=== PATIENT | female | born 1995 | race Caucasian/White ===

== ENCOUNTER → 2025-01-26 07:48 | Outpatient (REF) | payer OTHER, SELFPAY | LOC: RAD 07:48 | PROVIDERS: ATTENDING PHYSICIAN Internal Medicine; FAMILY PHYSICIAN Family Medicine | DX: R10.13 Epigastric pain (principal); K58.2 Mixed irritable bowel syndrome | CPT/HCPCS: 78264; A9541 ==

== ENCOUNTER 2025-03-09 06:23 | Day surgery (SDC) | payer OTHER, SELFPAY | END 2025-03-09 14:00 | disposition home or self-care (01) | LOC: GI 06:23 | PROVIDERS: ATTENDING PHYSICIAN Internal Medicine | DX: R12 Heartburn (principal); R14.0 Abdominal distension (gaseous); K44.9 Diaphragmatic hernia without obstruction or gangrene; K31.89 Other diseases of stomach and duodenum; K22.89 Other specified disease of esophagus; K20.0 Eosinophilic esophagitis | CPT/HCPCS: 43239; 88305; 88342 ==

== ENCOUNTER 2025-05-12 08:56 | Emergency (ER) | payer OTHER, SELFPAY ==
[2025-05-12 09:09] VITALS: BP 123/79
[2025-05-12 09:19] VITALS: BMI 31.6
--- NOTE | 2025-05-12 09:41 | ED.GENMED ---
History of Present Illness
General
Chief Complaint: Abdominal Pain
Source: patient
Exam Limitations: none
Time Seen by Provider: 05/12/25 09:17
Nursing documentation reviewed up to this point in time: agreed with
History of Present Illness
History of Present Illness:
Patient is a 29 year old female who presents to the emergency department with intermittent upper abdominal discomfort for the past 2 weeks. Patient describes intermittent burning discomfort in upper abdomen over the past 2 weeks associated with
nausea and a bloating sensation. She feels that sometimes this pain is exacerbated by eating however she has been trying to follow a very bland diet. She denies any fevers or vomiting. No significant diarrhea or urinary symptoms. No black or
bloody stools. No chest pain or shortness of breath.
Of note�patient does have a history of acid reflux and had an endoscopy performed in mid February with her GI doctor, Dr. Arellano. She was started on omeprazole and famotidine at that time which she has continued to take.
She is scheduled for a follow-up with her GI doctor in June.
Past History
Past History
ED Past Medical History: GERD and Other (Migraine headaches)
ED Past Surgical History: Appendectomy
Patient has exhibited threatening behavior?: No
Social History
Tobacco: Smoker
Alcohol: None
Drug: None
Personal: Single
Living: with family
Employment: Employed
Family History
Family History: Other (Noncontributory)
Review of Systems
Review of Systems
Allergies reviewed?: Yes
All Other Systems: ROS reviewed and negative except as documented in HPI and ROS
Phy Exam
Physical Exam
Physical Exam:
Vitals: Patient's vital signs are stable. Afebrile
General: Patient is well appearing, no acute distress
Skin: Warm and dry, no rashes or lesions
Head: Normocephalic, atraumatic
Eyes: Sclera nonicteric. EOMs intact. No nystagmus.
Throat: Protecting airway
Neck: Normal ROM, no cervical spine tenderness, no meningismus
Cardiac: Regular rate and rhythm, no murmurs.
Pulm: Normal respiratory effort, no wheezes, rales, rhonchi heard on exam
.
Abdomen: Nondistended. Abdomen soft with mild tenderness in epigastric region/ RUQ. No rebound tenderness or guarding.
Extremities: No evidence of cyanosis or edema. 2+ palpable DP pulses bilaterally.
Neuro: AAOx3. Grossly intact
Psychiatric: Normal affect.
Course
Orders/Labs/Results
Orders:
Orders
05/12/25 09:36
0.9% Sodium Chloride 1000 ml [Nss] 1,000 ml IV BOLUS
Mag Hydrox/Al Hydrox/Simeth [Maalox] 30 ml Phenobarb/Hyoscy/Atropine/Scop [] 10 ml Viscous Lidocaine 2% [Xylocaine Viscous Cup] 10 ml PO NOW
US Abdomen Complete/Upper Urgent
Comment:
Reason For Exam: Upper abdominal pain
05/12/25 09:37
Test Result ONCE
05/12/25 09:57
Complete Blood Count/With Diff Urgent
Comprehensive Metabolic Panel Urgent
HCG, Serum Qualitative Screen Urgent
Lipase Urgent
05/12/25 10:04
Mag Hydrox/Al Hydrox/Simeth [Maalox] 30 ml .ROUTE .STK-MED ONE
Phenobarb/Hyoscy/Atropine/Scop [] 10 ml .ROUTE .STK-MED ONE
05/12/25 10:05
Viscous Lidocaine 2% [Xylocaine Viscous Cup] 15 ml .ROUTE .STK-MED ONE
05/12/25 11:20
Electrocardiogram (*1) Urgent
Reason for Study: Abdominal Pain
EKG- Treatment ONCE
05/12/25 12:18
Famotidine [Pepcid] 20 mg IV NOW STA
05/12/25 12:27
Troponin I Urgent
Abnormal Lab Results
05/12/25
09:57
Hct 36.9 L %
(37.0-47.0)
Chloride 115 H mmol/L
(98-107)
Carbon Dioxide 16 L mmol/L
(22-30)
Alkaline Phosphatase 32 L U/L
(38-126)
05/12/25 09:57
05/12/25 09:57
Vital Signs
Initial and Last Documented VS:
Initial Vital Signs
Temp Pulse Resp BP Pulse Ox
97.9 F 79 16 123/79 99
05/12/25 09:09 05/12/25 09:09 05/12/25 09:09 05/12/25 09:09 05/12/25 09:09
Last Documented Vital Signs
Temp Pulse Resp BP Pulse Ox
97.9 F 79 16 94/66 99
05/12/25 09:09 05/12/25 09:09 05/12/25 09:09 05/12/25 13:00 05/12/25 13:00
MDM/Problems Addressed
Differential Diagnosis Includes:
Not limited to: gastritis, peptic ulcer, GERD, pancreatitis, cholelithiasis, choledocholithiasis, etc
MDM/Problems Addressed:
29-year-old female 2 weeks of upper abdominal discomfort and bloating. History of GERD with recent endoscopy in February 2025 without any acute findings. No recent fever, chest pain, shortness of breath. Vitals and physical exam as above. Patient
well-appearing, in no distress and nontoxic-appearing. Abdomen is soft with mild discomfort across upper abdomen. Negative George sign. No rebound tenderness or guarding. Cardio/pulmonary assessment unremarkable. Differential broad. Symptoms
seem most consistent with GERD, gastritis, peptic ulcer disease. Lower suspicion for acute intra-abdominal infection given relatively benign exam.
ED plan: Labs, abdominal ultrasound. Will treat with GI cocktail and reassess. Will obtain EKG for completeness however symptoms not consistent with acute coronary syndrome or cardiac emergency.
Update: Labs without clinically significant abnormalities. No LFT elevation or leukocytosis. Ultrasound without acute findings. Patient did have improvement in symptoms following GI cocktail however she did feel her symptoms did return. EKG does
show some nonspecific T wave flattening in anterior lateral leads. With no prior for comparison�Will obtain troponin to ensure no evidence of cardiac ischemia/acute cardiac process.
Update: Troponin negative. Patient does have some residual discomfort in upper abdomen however has remained stable and overall well-appearing. I do not suspect acute infectious process given patient is afebrile with no leukocytosis. Suspect this
is related to ongoing GERD/diagnosis of esophagitis. Shared decision making utilized with patient will plan to hold off on CT imaging for now. Will plan to treat supportively, continue PPI, diet modifications. Will add Carafate and have patient
follow-up with GI doctor outpatient. Return precautions discussed. Patient comfortable with plan.
Chronic conditions affecting care:
GERD
Acute Exacerbation and/or Progression of Chronic Illness:
N/A
*Radiology
Radiology exam reviewed: radiology read reviewed
*Pulse Oximetry
SaO2: 99
Oxygen Mode of Delivery: Room air
Patient hypoxic: no
*EKG
Interpreted by ED Provider?: Yes
EKG Intrepretation Date: 05/12/25
Interpretation: abnormal
Comparison EKG: no comparison EKG present
Heart Rate: 52
Rate: bradycardiac
Rhythm: sinus
[place]: normal axis
Interval: normal QT interval
QRS Pattern: normal QRS
Ischemia: non-specific ST changes (T wave flattening anterior lateral leads)
*Senior Audit Manager Interpretation
Rate: Senior Audit Manager- N/A
*Critical Care Note
Total Time (30-74mins, 75-104mins- exclusive of procedures): Not Applicable
Data Reviewed
Review of Other/Old Records Reveals: Testing (Endoscopy from 03/09/[address] Arellano-eosinophilic esophagitis versus GERD)
ED Attending Note
-
Portions of this chart may have been created with voice recognition software.� Occasional wrong word or��sound alike� substitutions may have occurred due to the inherent limitations of voice recognition software.
Discharge Plan
Departure
Patient Disposition: Home (Routine Discharge)
Date of Disposition: 05/12/25
Time of Disposition: 13:54
Patient with high blood pressure during this ER visit?: No
Discharge Problem:
Abdominal pain
Instructions: Acid Reflux and GERD in Adults (DC), Gastritis (DC)
Prescriptions:
New
sucralfate [Carafate] 1 gram tablet
See Rx Instructions .ROUTE .COMPLEX Qty: 30 0RF
Rx Instructions:
1 g orally before each meal and 1 tablet 1 hr prior to bed
No Action
candesartan 4 mg Tablet
4 mg PO DAILY
famotidine 40 mg Tablet
40 mg PO DAILY
omeprazole 40 mg Capsule,Delayed Release(Dr/Ec)
40 mg PO DAILY
topiramate [Topamax] 200 mg Tablet
200 mg PO DAILY
Emagality
120 mg SC Q28D
Referrals:
Sabrina Pfeiffer MD [Family Provider, Family Practice]
Kaila Arellano DO [Active, Gastroenterology] - Next open appointment
Activity Restrictions/Additional Instructions:
RETURN TO THE EMERGENCY DEPARTMENT FEVER, CHILLS, PERSIST/WORSENING ABDOMINAL PAIN, INTRACTABLE NAUSEA/VOMITING, CHEST PAIN OR SHORTNESS OF BREATH, SEVERE BACK PAIN, OR ANY OTHER SYMPTOMS CONCERNING TO YOU
- As discussed that your lab work and abdominal ultrasound showed no acute abnormalities. Your symptoms are likely secondary to gastritis/acid reflux.
- Please continue to take your medications as prescribed by GI doctor. I have sent a prescription for Carafate which you can take prior to meals and before bed.
- Please follow a low acid diet. You can take MiraLAX as needed for constipation.
- Follow-up with your GI doctor for further evaluation/management to ensure that your symptoms are improving
Monitor your symptoms closely and return to the emergency department with any acute worsening symptoms or any other concerns
Interventions
Interventions:
*Risk Screen - Suicide Last Done: 05/12/25 09:09
*General Assessment Last Done: 05/12/25 09:20
*Neglect/Abuse Screening Last Done: 05/12/25 09:09
*ED- Fall Risk Assessment Last Done: 05/12/25 09:20
*ED COVID-19 Vaccine History Last Done: 05/12/25 09:20
*Nursing Disposition Last Done: 05/12/25 14:12
LP-Afaexq-Mehzisgaii Assessment Last Done: 05/12/25 09:30
Discharge Date and Time
Discharge Date/Time: 05/12/25 14:12
Print Language: GERMAN
[2025-05-12] MEDS: NSS 1000 IV (09:56)
[2025-05-12 10:05] LABS: Hematocrit 36.9 % (37.0-47.0); Hemoglobin 12.7 g/dL (12.0-16.0); Mean Corp Hgb Conc. 34.4 g/dL (33.0-37.0); Mean Corpuscular Volume 86.4 fL (81.0-99.0); Nucleated Red Blood Cells % 0 %; Platelet Count 197 10^3/uL (130-400); Red Cell Dist. Width 12.2 % (11.5-14.5)
[2025-05-12 10:14] LABS: HCG, Serum Qualitative Screen Negative
[2025-05-12 10:17] LABS: ALT (SGPT) 12 U/L (0-35); AST (SGOT) 14 U/L (14-36); Albumin 3.9 g/dl (3.5-5.0); Alkaline Phosphatase 32 U/L (38-126); Blood Urea Nitrogen 8 mg/dl (7-17); Calcium 9.2 mg/dl (8.4-10.2); Carbon Dioxide 16 mmol/L (22-30); Chloride 115 mmol/L (98-107); Estimated Creatinine Clearance > 125 ml/min; Glucose 93 mg/dl (70-99); Lipase 86 U/L (23-300); Potassium 3.7 mmol/L (3.5-5.1); Sodium 138 mmol/L (135-145); Total Protein 6.6 g/dl (6.3-8.2); eGFR > 60.00
[2025-05-12] MEDS: MAALOX 50 PO (10:38)
[2025-05-12 10:42] VITALS: BP 115/65
[2025-05-12 11:00] VITALS: BP 108/63
[2025-05-12 12:00] VITALS: BP 104/59
[2025-05-12] MEDS: PEPCID 20 MG IV (12:31)
[2025-05-12 13:00] VITALS: BP 94/66
[2025-05-12 13:09] LABS: Troponin I < 0.012 ng/ml
== END 2025-05-12 14:12 | disposition home or self-care (01) ==
LOC: EMR 08:56
PROVIDERS: Physician Assistant; EMERGENCY PHYSICIAN Emergency Medicine; FAMILY PHYSICIAN Family Medicine
DX: R10.9 Unspecified abdominal pain (principal); K21.9 Gastro-esophageal reflux disease without esophagitis; F17.200 Nicotine dependence, unspecified, uncomplicated; Z90.49 Acquired absence of other specified parts of digestive tract
CPT/HCPCS: 96374; 96361; 99284; 76700; 80053; 83690; 84484; 84703; 85025; 93005

== ENCOUNTER 2025-05-16 06:54 | Emergency (ER) | payer OTHER, SELFPAY ==
[2025-05-16 07:06] VITALS: BP 115/79
[2025-05-16 09:14] VITALS: BMI 31.6
--- NOTE | 2025-05-16 09:31 | ED.GENMED ---
History of Present Illness
General
Chief Complaint: Abdominal Pain
Source: patient and family
Exam Limitations: none
Time Seen by Provider: 05/16/25 09:25
Nursing documentation reviewed up to this point in time: agreed with
History of Present Illness
History of Present Illness:
29-year-old female present history of GERD presenting to the emergency department today with concerns of upper abdominal pain and distention over the past 3 weeks. Has had decreased appetite and nausea frequently. Was here recently a few days ago
and had an ultrasound that did not show any emergent findings. Denies any chest pain shortness of breath fevers. Does have an appointment with GI in 2 weeks.
Past History
Past History
ED Past Medical History: GERD and Other (Migraine headaches)
ED Past Surgical History: Appendectomy
Patient has exhibited threatening behavior?: No
Social History
Tobacco: Smoker
Alcohol: None
Drug: None
Personal: Single
Living: with family
Employment: Employed
Family History
Family History: Other (Noncontributory)
Review of Systems
Review of Systems
Allergies reviewed?: Yes
All Other Systems: ROS reviewed and negative except as documented in HPI and ROS
Phy Exam
Physical Exam
Physical Exam:
GENERAL: Alert , in no apparent distress
EYE: pupils equal and reactive
NECK: Supple, no significant adenopathy.
ENT: o/p clr, mmm.
CARDIAC: Regular rate and rhythm .
LUNGS: Clear breath sounds bilaterally, no acute respiratory distress, no wheezes/rales/rhonchi
ABDOMEN: S vague diffuse abdominal pain no severe pain or no focal pain
NEUROLOGICAL: Alert and oriented, no focal neuro deficits
SKIN: Warm and dry, skin intact.
MUSCULOSKELETAL: No edema, well perfused.
PSYCH: Normal and appropriate interaction.
Course
Orders/Labs/Results
Orders:
Orders
05/16/25 10:19
CT Abd/Pel (IV only)-DH only Urgent
Comment:
Reason For Exam: diffuse abd pain, maximal to mid right abd
Test Result ONCE
05/16/25 10:20
0.9% Sodium Chloride 1000 ml [Nss] 1,000 ml IV BOLUS
Metoclopramide [Reglan] 10 mg IV NOW STA
05/16/25 10:37
Urinalysis Reflex To Culture Urgent
Date Specimen was Collected: 05/16/25
Time Specimen was Collected: 10:22
Urine Microscopic Reflex Cult Urgent
05/16/25 10:46
Complete Blood Count/With Diff Urgent
Comprehensive Metabolic Panel Urgent
HCG, Serum Qualitative Screen Urgent
Lipase Urgent
05/16/25 13:04
Mag Hydrox/Al Hydrox/Simeth [Maalox] 30 ml Phenobarb/Hyoscy/Atropine/Scop [] 10 ml Viscous Lidocaine 2% [Xylocaine Viscous Cup] 10 ml PO NOW
Abnormal Lab Results
05/16/25 05/16/25
10:37 10:46
Chloride 112 H mmol/L
(98-107)
Carbon Dioxide 19 L mmol/L
(22-30)
Alkaline Phosphatase 35 L U/L
(38-126)
Ur Occult Blood Reflex 4+ A
(Negative)
Urine RBC 60-70 A /HPF
(0-2)
Urine Albumin (Reflex) 2+ A
(Neg - Trace)
05/16/25 10:46
05/16/25 10:46
Vital Signs
Initial and Last Documented VS:
Initial Vital Signs
Temp Pulse Resp BP Pulse Ox
98.6 F 82 18 115/79 100
05/16/25 07:06 05/16/25 07:06 05/16/25 07:06 05/16/25 07:06 05/16/25 07:06
Last Documented Vital Signs
Temp Pulse Resp BP Pulse Ox
98.6 F 82 18 110/63 100
05/16/25 07:06 05/16/25 07:06 05/16/25 07:06 05/16/25 11:00 05/16/25 11:00
MDM/Problems Addressed
MDM/Problems Addressed:
29-year-old female presenting to the emergency department today with concerns of ongoing diffuse abdominal pain upper abdominal pain and distention. Here labs unremarkable CT scan negative no signs of emergent pathology advised for outpatient
follow-up. Return precautions given.
*Pulse Oximetry
SaO2: 100
Oxygen Mode of Delivery: Room air
Patient hypoxic: no (100)
*Critical Care Note
Total Time (30-74mins, 75-104mins- exclusive of procedures): Not Applicable
ED Attending Note
-
Portions of this chart may have been created with voice recognition software.� Occasional wrong word or��sound alike� substitutions may have occurred due to the inherent limitations of voice recognition software.
Discharge Plan
Departure
Patient Disposition: Home (Routine Discharge)
Date of Disposition: 05/16/25
Time of Disposition: 13:12
Patient with high blood pressure during this ER visit?: No
Condition: Good
Covid-19: Not Applicable
Discharge Problem:
Abdominal pain
Instructions: Abdominal Pain
Prescriptions:
New
metoclopramide HCl [Reglan] 10 mg tablet
10 mg PO Q6H PRN (Reason: nausea and vomiting) Qty: 10 0RF
No Action
candesartan 4 mg Tablet
4 mg PO DAILY
famotidine 40 mg Tablet
40 mg PO DAILY
omeprazole 40 mg Capsule,Delayed Release(Dr/Ec)
40 mg PO DAILY
topiramate [Topamax] 200 mg Tablet
200 mg PO DAILY
Emagality
120 mg SC Q28D
sucralfate [Carafate] 1 gram tablet
See Rx Instructions .ROUTE .COMPLEX Qty: 30 0RF
Rx Instructions:
1 g orally before each meal and 1 tablet 1 hr prior to bed
Referrals:
Sabrina Pfeiffer MD [Family Provider, [facility]]
Activity Restrictions/Additional Instructions:
You came to the emergency department today for concerns of ongoing abdominal pain. Here you had a reassuring assessment with normal labs urinalysis as well as a CT scan. Please take the Reglan once every 6-8 hours to help with symptoms at home and
otherwise follow-up closely with GI. Return for any worsening, new or concerning symptoms.
Interventions
Interventions:
*Risk Screen - Suicide Last Done: 05/16/25 07:06
*General Assessment Last Done: 05/16/25 09:14
*Neglect/Abuse Screening Last Done: 05/16/25 09:14
*ED- Fall Risk Assessment Last Done: 05/16/25 09:14
*ED COVID-19 Vaccine History Last Done: 05/16/25 09:14
VR-Bkakdn-Ncsqfylbrj Assessment Last Done: 05/16/25 09:36
Discharge Date and Time
Print Language: [place]
[2025-05-16 09:41] VITALS: BP 100/68
[2025-05-16 10:00] VITALS: BP 104/70
[2025-05-16 10:52] LABS: Hematocrit 39.1 % (37.0-47.0); Hemoglobin 13.8 g/dL (12.0-16.0); Mean Corp Hgb Conc. 35.3 g/dL (33.0-37.0); Mean Corpuscular Volume 84.8 fL (81.0-99.0); Nucleated Red Blood Cells % 0 %; Platelet Count 234 10^3/uL (130-400); Red Cell Dist. Width 12.2 % (11.5-14.5)
[2025-05-16] MEDS: NSS 1000 IV (10:57)
[2025-05-16] MEDS: REGLAN 10 MG IV (10:57)
[2025-05-16 11:00] VITALS: BP 110/63
[2025-05-16 11:02] LABS: HCG, Serum Qualitative Screen Negative
[2025-05-16 11:13] LABS: Urine Character Slightly Cloudy (Clear)
[2025-05-16 11:25] LABS: ALT (SGPT) 13 U/L (0-35); AST (SGOT) 20 U/L (14-36); Albumin 4.4 g/dl (3.5-5.0); Alkaline Phosphatase 35 U/L (38-126); Blood Urea Nitrogen 7 mg/dl (7-17); Calcium 9.5 mg/dl (8.4-10.2); Carbon Dioxide 19 mmol/L (22-30); Chloride 112 mmol/L (98-107); Estimated Creatinine Clearance > 125 ml/min; Glucose 94 mg/dl (70-99); Lipase 91 U/L (23-300); Potassium 4.3 mmol/L (3.5-5.1); Sodium 139 mmol/L (135-145); Total Protein 7.1 g/dl (6.3-8.2); eGFR > 60.00
[2025-05-16 12:13] LABS: Urine Red Blood Cell 60-70 /HPF (0-2)
[2025-05-16] MEDS: MAALOX 50 PO (13:17)
== END 2025-05-16 13:24 | disposition home or self-care (01) ==
LOC: EMR 06:54
PROVIDERS: Physician Assistant; EMERGENCY PHYSICIAN Emergency Medicine; FAMILY PHYSICIAN Family Medicine
DX: R10.10 Upper abdominal pain, unspecified (principal); K21.9 Gastro-esophageal reflux disease without esophagitis; F17.200 Nicotine dependence, unspecified, uncomplicated; Z90.49 Acquired absence of other specified parts of digestive tract
CPT/HCPCS: 96374; 96361; 99284; 74177; 80053; 81003; 81015; 83690; 84703; 85025; Q9967

== ENCOUNTER 2025-06-29 06:22 | Day surgery (SDC) | payer OTHER, SELFPAY ==
[2025-06-29 11:09] VITALS: BMI 30.9
[2025-06-29 11:13] VITALS: BP 105/65
[2025-06-29 12:05] VITALS: BP 106/68
[2025-06-29 12:15] VITALS: BP 109/62
[2025-06-29 12:30] VITALS: BP 104/61
== END 2025-06-29 12:43 | disposition home or self-care (01) ==
LOC: SDS 06:22
PROVIDERS: ATTENDING PHYSICIAN Internal Medicine
DX: K29.50 Unspecified chronic gastritis without bleeding (principal); K44.9 Diaphragmatic hernia without obstruction or gangrene; K31.89 Other diseases of stomach and duodenum; R11.10 Vomiting, unspecified; K30 Functional dyspepsia
CPT/HCPCS: 43239; 88305; 88342